=== PATIENT | female | born 1950 ===

== ENCOUNTER 2022-03-27 10:30 | Inpatient (IN) | payer OTHER ==
[~2022-03-27] VITALS: Ht 165.1 cm; Wt 74.8 kg
[2022-03-27] MEDS ORDERED: TOPROL XL25 M1 PO (13:25)
[2022-03-27] MEDS ORDERED: NORVASC5 MG PO (13:26)
[2022-03-27] MEDS ORDERED: LEVO-T88 MCG PO (13:26)
[2022-03-27] MEDS ORDERED: ALLER-TEC10 MG PO (13:26)
[2022-03-29] MEDS ORDERED: FLONASE16 GM (12:01)
[2022-03-29] MEDS ORDERED: COLACE100 MG PO (12:48)
[2022-03-29] MEDS ORDERED: MEDROLPACK PO (12:49)
[2022-03-29] MEDS ORDERED: NEURONTIN800 MG PO (12:49)
[2022-03-29] MEDS ORDERED: PERCOCET 5-3251 EACH PO (12:49)
[2022-03-29] MEDS ORDERED: BACTRIM DS TAB1 EACH PO (12:49)
[2022-03-30] MEDS ORDERED: MS CONTIN15 M1 PO (07:31)
== END 2022-03-30 22:17 | disposition home or self-care (01) | DRG 455 ==
LOC: O/R 03-29 06:42 → PED 03-29 06:42 → SURH 03-29 10:30 → PED 03-29 17:23
PROVIDERS: ADMIT Orthopaedic Surgery Orthopaedic Surgery of the Spine; ATTEND Orthopaedic Surgery Orthopaedic Surgery of the Spine
PROC: 0SG1071 Fusion of 2 or more Lumbar Vertebral Joints with Autologous Tissue Substitute, Posterior Approach, Posterior Column, Open Approach (ICD-10-PCS; 2022-03-29)
PROC: 0QU00JZ Supplement Lumbar Vertebra with Synthetic Substitute, Open Approach (ICD-10-PCS; 2022-03-29)
PROC: 0ST20ZZ Resection of Lumbar Vertebral Disc, Open Approach (ICD-10-PCS; 2022-03-29)
PROC: 0QB30ZZ Excision of Left Pelvic Bone, Open Approach (ICD-10-PCS; 2022-03-29)
PROC: 07DR0ZZ Extraction of Iliac Bone Marrow, Open Approach (ICD-10-PCS; 2022-03-29)
PROC: 0SG10A0 Fusion of 2 or more Lumbar Vertebral Joints with Interbody Fusion Device, Anterior Approach, Anterior Column, Open Approach (ICD-10-PCS; principal; 2022-03-29 10:30)
DX: M43.16 Spondylolisthesis, lumbar region (principal); M48.062 Spinal stenosis, lumbar region with neurogenic claudication; M51.36 Other intervertebral disc degeneration, lumbar region; M41.86 Other forms of scoliosis, lumbar region; I10 Essential (primary) hypertension; E03.9 Hypothyroidism, unspecified

== ENCOUNTER 2023-03-22 08:51 | Inpatient (IN) | payer OTHER ==
[~2023-03-22] VITALS: Ht 152.4 cm; Wt 77.1 kg
[~2023-03-22 08:51] MED LIST: ALLER-TEC10 MG PO; BACTRIM DS TAB1 EACH PO; COLACE100 MG PO; FLONASE16 GM; LEVO-T88 MCG PO; MEDROLPACK PO; MS CONTIN15 M1 PO; NEURONTIN800 MG PO; NORVASC5 MG PO; PERCOCET 5-3251 EACH PO; TOPROL XL25 M1 PO
[2023-03-22] MEDS ORDERED: INDAPAMIDE1.25 MG PO (12:52)
[2023-03-28] MEDS ORDERED: PERCOCET 5-3251 EACH PO (14:02)
[2023-03-28] MEDS ORDERED: MEDROLPACK PO (14:03)
[2023-03-28] MEDS ORDERED: COLACE100 MG PO (14:03)
== END 2023-03-29 12:47 | disposition home or self-care (01) | DRG 473 ==
LOC: O/R 03-28 06:40 → SURH 03-28 11:15 → PED 03-28 16:46
PROVIDERS: ADMIT Orthopaedic Surgery Orthopaedic Surgery of the Spine; ATTEND Orthopaedic Surgery Orthopaedic Surgery of the Spine
PROC: 0RT30ZZ Resection of Cervical Vertebral Disc, Open Approach (ICD-10-PCS; 2023-03-28)
PROC: 07DS0ZZ Extraction of Vertebral Bone Marrow, Open Approach (ICD-10-PCS; 2023-03-28)
PROC: 0RG20A0 Fusion of 2 or more Cervical Vertebral Joints with Interbody Fusion Device, Anterior Approach, Anterior Column, Open Approach (ICD-10-PCS; principal; 2023-03-28 16:45)
DX: M50.021 Cervical disc disorder at C4-C5 level with myelopathy (principal); M48.02 Spinal stenosis, cervical region; I10 Essential (primary) hypertension; E03.9 Hypothyroidism, unspecified